=== PATIENT | female | born 1985 | race Caucasian/White ===

== ENCOUNTER 2018-12-05 12:10 | Outpatient (CLI) | payer MEDICAID | END 2018-12-05 14:08 | disposition home or self-care (01) | LOC: OBT 12:10 → L-D 12:10 → OBT 14:08 | DX: O26.843 Uterine size-date discrepancy, third trimester (principal); Z3A.35 35 weeks gestation of pregnancy | CPT/HCPCS: 76815; 76818 ==

== ENCOUNTER 2019-01-01 11:20 | Inpatient (IN) | payer MEDICAID ==
[2019-01-01] MEDS ORDERED: CARBOPROST 250 MCG INJ IM (13:30)
[2019-01-01] MEDS ORDERED: LIDOCAINE 1% (MPF) 30 ML INJ INJ (13:30)
[2019-01-01] MEDS ORDERED: OXYTOCIN 30 UNITS/LR 500 ML IV ×2 (13:30)
[2019-01-01] MEDS ORDERED: OXYCODONE/ASPIRIN (4.88/325) TAB PO (13:30)
[2019-01-01] MEDS ORDERED: BUTORPHANOL 2 MG INJ IV (13:30)
[2019-01-01] MEDS ORDERED: IBUPROFEN 600 MG TAB PO (13:30)
[2019-01-01] MEDS ORDERED: METHYLERGONOVINE 0.2 MG INJ IM (13:30)
[2019-01-01] MEDS ORDERED: MISOPROSTOL 200 MCG TAB PR (13:30)
[2019-01-01] MEDS: LACTATED RINGER'S 1,000 ML IV ×4 (14:38→21:35)
[2019-01-01 14:42] LABS: ADD MAN DIFF? NO
[2019-01-01 14:46] LABS: WHITE BLOOD COUNT 9.1 10^3/ul (4.8-10.8)
[2019-01-01 14:47] LABS: BASOPHILS % 0.1 % (0.0-2.0); EOSINOPHILS % 0.3 % (0.0-7.0); HEMATOCRIT 39.7 % (37.0-47.0); HEMOGLOBIN 13.4 g/dl (12.0-16.0); LYMPHOCYTES # 2.3 10^3/ul (0.8-2.9); LYMPHOCYTES % 25.8 % (15.0-51.0); MEAN CORPUSCULAR HEMOGLOBIN 29.8 pg (29.0-33.0); MEAN CORPUSCULAR HGB CONC 33.8 g/dl (32.0-37.0); MEAN CORPUSCULAR VOLUME 88.4 fl (82.0-101.0); MEAN PLATELET VOLUME 11.4 fl (7.4-10.4); MONOCYTE # 0.4 10^3/ul (0.3-0.9); MONOCYTES % 4.1 % (0.0-11.0); NEUTROPHIL # 6.3 10^3/ul (1.6-7.5); PLATELET COUNT 180 10^3/UL (140-415); RED BLOOD COUNT 4.49 10^6/ul (4.20-5.40); RED CELL DISTRIBUTION WIDTH 14.1 % (11.5-14.5)
[2019-01-01 15:02] LABS: PROTIME 12.3 Sec (11.9-14.9)
[2019-01-01 15:03] LABS: PARTIAL THROMBOPLASTIN TIME 28.1 Sec (23.0-35.0)
[2019-01-01] MEDS ORDERED: FENTAnyl 2MCG/ML-ROPIV 0.2% 100 ML (18:37)
[2019-01-01] MEDS ORDERED: FENTAnyl 2MCG/ML-ROPIV 0.2% 100 ML BAG EPI (19:00)
[2019-01-01] MEDS ORDERED: DIPHENHYDRAMINE 50 MG INJ IV (19:00)
[2019-01-01] MEDS ORDERED: NALOXONE (0.4 MG/ML) INJ IV (19:00)
[2019-01-01] MEDS ORDERED: ONDANSETRON 4 MG INJ IV (19:00)
[2019-01-01] MEDS: OXYTOCIN 30 UNITS/LR 500 ML IV ×2 (21:35→23:11)
[2019-01-02] MEDS ORDERED: CARBOPROST 250 MCG INJ IM
[2019-01-02] MEDS ORDERED: MISOPROSTOL 200 MCG TAB PR
[2019-01-02] MEDS ORDERED: ZOLPIDEM 5 MG TAB PO
[2019-01-02] MEDS ORDERED: DIPHENHYDRAMINE 25 MG CAP PO
[2019-01-02] MEDS ORDERED: ONDANSETRON 4 MG INJ IV
[2019-01-02] MEDS ORDERED: METHYLERGONOVINE 0.2 MG INJ IM
[2019-01-02] MEDS ORDERED: NACL 0.9% 3 ML SYG IV
[2019-01-02] MEDS ORDERED: OXYTOCIN 30 UNITS/LR 500 ML IV
[2019-01-02 00:45] LABS: HEMOGLOBIN 12.8 g/dl (12.0-16.0)
[2019-01-02] MEDS: WITCH HAZEL/GLYCERIN PAD PR (01:07)
[2019-01-02] MEDS: LANOLIN HPA 1 PKT TOP (01:07)
[2019-01-02] MEDS: IBUPROFEN 600 MG TAB PO ×5 (01:25→23:43)
[2019-01-02] MEDS: OXYTOCIN 30 UNITS/LR 500 ML IV (02:52)
[2019-01-02] MEDS: SENNA/DOCUSATE NA (8.6MG/50MG) TAB PO ×3 (09:11→20:16)
[2019-01-02] MEDS: HYDROCODONE/APAP (5/325) TAB PO (09:11)
[2019-01-02 18:28] LABS: RAPID PLASMA REAGIN NONREACTIVE (NR)
[2019-01-03] MEDS: IBUPROFEN 600 MG TAB PO ×3 (05:19→17:25)
[2019-01-03] MEDS: SENNA/DOCUSATE NA (8.6MG/50MG) TAB PO (08:32)
[2019-01-03] MEDS: HYDROCODONE/APAP (5/325) TAB PO ×2 (08:32→16:29)
== END 2019-01-03 18:45 | disposition home or self-care (01) | DRG 807 ==
LOC: OBT 11:20 → MS1 01-02 01:02 → L-D 11:20 → OBT 13:09 → L-D 13:07
PROVIDERS: Obstetrics & Gynecology
PROC: 10E0XZZ Delivery of Products of Conception, External Approach (ICD-10-PCS; principal; 2019-01-01)
PROC: 0HQ9XZZ Repair Perineum Skin, External Approach (ICD-10-PCS; 2019-01-01)
DX: O70.0 First degree perineal laceration during delivery (principal); Z37.0 Single live birth; Z3A.39 39 weeks gestation of pregnancy
CPT/HCPCS: 62319; 76818; 85014; 85018; 85025; 85610; 85730; 86592; 86850; 86900; 86901; 90686; 93970